=== PATIENT | female | born 2000 | race African-American/Black ===

== ENCOUNTER 2019-06-01 18:28 | Emergency (ER) | payer OTHER ==
[~2019-06-01] VITALS: Ht 149.9 cm; Wt 48.1 kg
[2019-06-01 18:55] LABS: ABSOLUTE NEUTROPHILS 9.1 thou/uL (1.4-8.2); BASOPHILS 0.2 % (0.0-2.0); EOSINOPHILS 0.6 % (0.0-3.0); HEMATOCRIT 33.8 % (37.0-47.0); LYMPHOCYTES 18.4 % (24.0-44.0); MCH 21.2 pg (26.0-34.0); MCHC 29.5 g/dL (28.0-37.0); MCV 71.9 fL (80.0-100.0); MONOCYTES 9.3 % (1.0-8.0); PLATELET COUNT 349 thou/uL (150-400); POLYS 71.5 % (36.0-66.0); RDW 18.5 % (10.5-14.5); WBC 12.7 thou/uL (4.0-11.0)
[2019-06-01 19:06] LABS: CALCIUM 8.9 mg/dL (8.5-10.1); CREATININE 0.9 mg/dL (0.6-1.0); POTASSIUM 3.4 mmol/L (3.5-5.1)
[2019-06-01 19:51] LABS: URINE BILIRUBIN NEGATIVE (Negative); URINE BLOOD 1+ (Negative); URINE CLARITY SL CLOUDY; URINE COLOR YELLOW; URINE GLUCOSE-RANDOM* NEGATIVE (Negative); URINE KETONES NEGATIVE (Negative); URINE LEUKOCYTES-REFLEX TRACE (Negative); URINE NITRITE-REFLEX NEGATIVE (Negative); URINE PROTEIN (DIPSTICK) NEGATIVE (Negative); URINE UROBILINOGEN 0.2 E.U./dl (0.2-1.0)
[2019-06-01 20:03] LABS: BACTERIA-REFLEX 1-9 Few /HPF (None Seen); CASTS None Seen /LPF (None Seen); CRYSTALS None Seen /LPF (None Seen); MUCUS 4-6 Moderate strn/LPF (None Seen); SQUAMOUS 4-10 Moderate /LPF (0-3); URINE RBC 3-10 Few /HPF (0-2); URINE WBC-REFLEX 0-5 Rare /HPF (0-5)
[2019-06-01 21:11] VITALS: BP 113/71
== END 2019-06-01 21:12 | disposition home or self-care (01) ==
LOC: ER 18:28
PROVIDERS: Emergency Medicine
DX: R10.84 Generalized abdominal pain (principal); R11.10 Vomiting, unspecified; Z88.0 Allergy status to penicillin; Z88.1 Allergy status to other antibiotic agents

== ENCOUNTER 2019-09-04 16:21 | Emergency (ER) | payer OTHER ==
[~2019-09-04] VITALS: Ht 149.9 cm; Wt 47.6 kg
[2019-09-04 16:54] LABS: URINE BILIRUBIN NEGATIVE (Negative); URINE BLOOD NEGATIVE (Negative); URINE CLARITY CLEAR; URINE COLOR YELLOW; URINE GLUCOSE-RANDOM* NEGATIVE (Negative); URINE KETONES 1+ (Negative); URINE LEUKOCYTES-REFLEX NEGATIVE (Negative); URINE NITRITE-REFLEX NEGATIVE (Negative); URINE PROTEIN (DIPSTICK) NEGATIVE (Negative)
[2019-09-04 17:50] LABS: HEMATOCRIT 33.9 % (37.0-47.0); HEMOGLOBIN 9.9 gm/dL (12.0-15.0); MCH 20.2 pg (26.0-34.0); MCHC 29.3 g/dL (28.0-37.0); MCV 68.9 fL (80.0-100.0); PLATELET COUNT 366 thou/uL (150-400); RBC 4.92 mil/uL (4.20-5.00); RDW 19.8 % (10.5-14.5); WBC 13.9 thou/uL (4.0-11.0)
[2019-09-04 18:05] LABS: ALBUMIN 3.5 g/dL (3.4-5.0); CALCIUM 8.8 mg/dL (8.5-10.1); CREATININE 0.8 mg/dL (0.6-1.0); TOTAL BILIRUBIN 0.5 mg/dL (<0.1-1.0); TOTAL PROTEIN 7.5 g/dL (6.4-8.2)
[2019-09-04 18:09] LABS: POTASSIUM 2.8 mmol/L (3.5-5.1)
[2019-09-04 18:22] LABS: ABSOLUTE NEUTROPHILS 10.3 thou/uL (1.4-8.2); ANISOCYTOSIS 2+; HYPOCHROMASIA SLIGHT; MICROCYTES 2+; PLATELET ESTIMATE NORMAL
[2019-09-04] MEDS ORDERED: ZOFRAN ODT4 MG PO (19:11)
[2019-09-04] MEDS ORDERED: BENTYL 20 MG TA20 M1 PO (19:11)
[2019-09-04 19:34] VITALS: BP 112/66
[2019-09-04] MEDS ORDERED: POTASSIUM20 PO (19:37)
== END 2019-09-04 19:42 | disposition home or self-care (01) ==
LOC: ER 16:21
PROVIDERS: Nurse Practitioner Family
DX: R11.2 Nausea with vomiting, unspecified (principal); Z88.1 Allergy status to other antibiotic agents; Z88.0 Allergy status to penicillin; R10.9 Unspecified abdominal pain